=== PATIENT | female | born 1995 | race Caucasian/White ===

== ENCOUNTER 2024-01-04 22:12 | Emergency (ER) | payer OTHER, SELFPAY ==
[2024-01-04 22:13] VITALS: BP 131/87; PULSE 114; RESP 18; TEMP 37.2; O2SAT 99; BMI 38.2
[2024-01-04 23:26] VITALS: BP 124/90; PULSE 61; RESP 18; TEMP 36.8; O2SAT 97
[2024-01-04 23:59] VITALS: BP 139/88; PULSE 104; RESP 16; O2SAT 96
[2024-01-05 00:26] LABS: Absolute Lymphocyte Count 2.03 X10^3/uL (0.83-4.51); Absolute Neutrophil Count 11.2 X10^3/uL (2.0-7.7); Basophil# 0.04 X10^3/uL; Basophil% 0.3 % (0-1); Eosinophil# 0.25 X10^3/uL; Eosinophils% 1.8 % (0-5); Hematocrit 37.1 % (37-47); Hemoglobin 11.1 g/dL (12.0-15.0); Lymphocyte # 2.03 X10^3/ul (0.83-4.51); Lymphocyte % 14.5 % (19-41); Mean Corp Hgb Conc 29.9 g/dL (32-36); Mean Corpuscular Hgb 24.3 pg (27.0-32.0); Mean Corpuscular Volume 81.2 fL (81-99); Mean Platelet Vol. 10.4 fl (6.2-12.0); Monocyte# 0.44 X10^3/uL; Monocyte% 3.1 % (0-10); NRBC Flagged by Analyzer 0 % (0-5); Neutrophil # 11.19 X10^3/uL (2.7-7.7); Neutrophil % 79.9 % (47-70); Platelet Count 380 K/mm3 (150-450); RBC Distribution Width CV 15.3 % (11.6-14.6); RBC Distribution Width SD 45.4 fl (35.1-43.9); Red Blood Count 4.57 M/mm3 (4.2-5.4)
[2024-01-05 00:30] LABS: Internal QC Validated? YES +Cl - CLEAR BKGD; Pregnancy, Serum, hCG Quali. NEGATIVE Negative
[2024-01-05 00:33] LABS: AST(SGOT) 18 U/L (15-37); Alanine Aminotransfer ALT/SGPT 34 U/L (13-56); Albumin, Serum 3.4 g/dL (3.2-5.0); Alkaline Phosphatase 145 U/L (45-117); Anion Gap 5 (5-15); BUN 11 mg/dL (7-18); BUN/Creat Ratio 16.4 RATIO (10-20); Bilirubin, Direct < 0.05 mg/dL (0.00-0.30); Calcium,Total 9.1 mg/dL (8.5-10.1); Chloride 108 mmol/L (98-107); Creatinine, Serum 0.67 mg/dL (0.55-1.02); EST Glomerular Filtration Rate 111 mL/min (>60); Est Glom Filt Rate - Afr Amer 134 mL/min (>60); Estimated Creatinine Clearance 134.16 ml/min; Globulin 4.3 g/dL (2.2-4.2); Glucose 122 mg/dL (74-106); Lipase 26 U/L (13-75); Potassium 3.8 mmol/L (3.5-5.1); Protein, Total 7.7 g/dL (6.4-8.2); Sodium Level 141 mmol/L (136-145)
--- NOTE | 2024-01-05 00:57 | CT_ITS ---
EXAM: CT Abdomen And Pelvis W/O Contrast Injection HISTORY: abd pain back pain and right sided pain TECHNIQUE: Routine protocol CT abdomen and pelvis. IV Contrast: None.. Oral contrast: With. RADIATION DOSAGE (If Supplied By Facility): CTDIvol = ( 20.92 ) mGy, DLP = ( 982.62 ) mGycm Individualized dose optimization techniques were used for this CT. COMPARISON: None. LIMITATIONS: None. FINDINGS: LOWER CHEST: Included lung bases are clear. LIVER: Grossly unremarkable. GALLBLADDER AND BILIARY TREE: Questionable tiny gallstone in the gallbladder neck region. Gallbladder wall is indistinct possibly motion related. PANCREAS: Grossly unremarkable. SPLEEN: Grossly unremarkable. ADRENAL GLANDS: Grossly unremarkable. KIDNEYS AND URETERS: Left kidney atrophic. No calculi demonstrated. No hydronephrosis. PERITONEUM: MINILAB OPERATOR shunt tip in the left midabdomen. No free air. No free fluid. BOWEL: No bowel obstruction. APPENDIX: Not identified. VESSELS: Abdominal aorta is normal caliber. REPRODUCTIVE ORGANS: Soft tissue fullness in the left adnexa approximately 4 x 3.5 cm abuts the uterus, possibly exophytic fibroid versus related to the left ovary. URINARY BLADDER: Mildly distended, lobulated contour. ABDOMINAL WALL: Unremarkable. BONES: No acute abnormalities. Scoliosis and lumbosacral dysraphism with cord abnormality which is not well assessed. CT/Abdomen/Pel W ORAL Cont Only IMPRESSION: Questionable cholelithiasis and indistinct gallbladder wall. Ultrasound correlation may be helpful to evaluate for acute cholecystitis if clinically indicated. Soft tissue fullness left adnexa exophytic fibroid versus prominent left ovary. This could be further evaluated with pelvic ultrasound as needed. Atrophic left kidney. Electronically Signed: Keyona Corcoran MD at 3:23 EST ,
[2024-01-05] MEDS: Oxycodone/Apap 5/325 Tablet PO ×2 (01:03→04:02)
[2024-01-05 01:20] LABS: Color, Urine Yellow (Yellow); Glucose, Dipstick Normal (Normal); Ketone-Dipstick 5 mg/dl (Negative); Leukocyte Esterase-Dipstick 500 /ul (Negative); Mucous, Urine 0 SEEN /hpf (<or=2+); Nitrite-Dipstick Positive (Negative); Occult Blood-Urine 10 /ul (Negative); Protein-Dipstick 15 mg/dl (Negative); Specific Gravity, Urine 1.015 (1.002-1.030); Urine Bilirubin Dipstick Negative (Negative); Urine Clarity Sl. Cloudy (Clear); Urine Urobilinogen 1 mg/dl (Normal)
[2024-01-05 01:27] LABS: Bacteria 4+ /hpf (None Seen); Fine Granular Cast- Urine 0 SEEN /lpf (0-5); Hyaline Cast 0 SEEN /lpf (0-5); Red Blood Cells-Urine 10-25 SEEN /hpf (0-5); Squamous Epithelial Cells - UA 5-10 SEEN /hpf (5-10); White Blood Cells >100 SEEN /hpf (0-5)
[2024-01-05] MEDS: Ceftriaxone 1 GM Vial IM (02:59)
--- NOTE | 2024-01-05 03:41 | EX.ED.DYSGE1 ---
HPI History of Present Illness Chief Complaint: Back Informant: patient and parent Narrative Narrative: Patient is a 28-year-old female with past medical history of anxiety/depression as well as spina bifida. She states she has been having intermittent right-sided back pain over the last week or so with no known injury. She states that this evening it came on suddenly and despite taking [id number] medications has not improved. 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 She states that with her spina bifida she is paralyzed from the waist down and has to self catheterize 3 times a day. She states has been no associated fevers or chills with this based on the persistent pain comes in for evaluation [facility] Medical History (Updated 01/05/24 @ 05:[address] Avinash Jimenez, ) Anxiety Depressed Spina bifida Home Medications alprazolam 0.5 mg tablet 0.5 mg PO TID 01/04/24 [History Last Taken Unknown] bupropion HCl 300 mg 24 hr tablet, extended release 300 mg PO DAILY 01/04/24 [History Last Taken Unknown] venlafaxine 75 mg capsule,extended release 24 hr 75 mg PO BID 01/04/24 [History Last Taken Unknown] oxycodone-acetaminophen 5 mg-325 mg tablet (Percocet) 1 tab PO Q6H PRN pain 3 days #12 tabs 01/05/24 [Rx Last Taken Unknown] sulfamethoxazole 800 mg-trimethoprim 160 mg tablet (Bactrim DS) 1 tab PO BID 7 days #14 tabs 01/05/24 [Rx Last Taken Unknown] Allergy/AdvReac Type Severity Reaction Status Date / Time No Known Allergies Allergy Verified 01/05/24 01:20 Social History Smoking Status: Never smoker [facility] ED Constitutional Constitutional ED: Denies chills or fever(s) Eyes Eyes: Denies change in vision ENT ENT ED: Denies sore throat Cardiovascular Cardiovascular: Denies chest pain Respiratory/Chest Respiratory/Chest: Denies cough or dyspnea Gastrointestinal Gastrointestinal: Reports abdominal pain; Denies diarrhea, nausea or vomiting Musculoskeletal Musculoskeletal: Reports back pain Integumentary Denies rash Neurologic Neurologic: Denies headache(s) Hematologic/Lymphatic Hematologic/Lymphatic: Denies easy bleeding or easy bruising EXAM Physical Exam Const Vital Signs: 01/04/24 22:13 01/04/24 23:59 01/04/24 23:26 Temperature 98.9 F 98.3 F Temperature Source Oral Pulse Rate 114 H 104 H 61 Respiratory Rate 18 16 18 Blood Pressure 131/87 H 139/88 H 124/90 H Blood Pressure Mean 101 105 101 Pulse Ox 99 96 97 Oxygen Delivery Method Room Air Room Air Positive well nourished, well developed and obese General Appearance ED: well developed; Negative for pallor Nutritional Appearance: obese HEENT HEENT Narrative: Normocephalic atraumatic Eyes PERRL and EOMs intact bilaterally General Eye ED: Negative for scleral icterus Neck supple Resp normal respiratory effort and clear to auscultation bilaterally Cardio regular rate and regular rhythm Rate: other Other Details: Radial and carotid pulses are equal and symmetric GI non-distended GI Narrative: Abdomen is soft and nondistended with normal active bowel sounds. Patient has mild pain with palpation in the right upper quadrant without voluntary guarding or rigidity. Negative Mcnamara sign noted. Auscultation: normoactive bowel sounds Palpation: soft Back/Spine Back/Spine Narrative: Positive right CVA pain present Extremity Extremity Narrative: Patient has chronic changes to her bilateral lower extremities consistent with spina bifida Neuro oriented x3 and CN's II-XII intact bilaterally Sensorium / Orientation: alert Psych mental status grossly normal Skin no rashes or lesions noted Skin Narrative: No overlying soft tissue changes to suggest trauma or infection General Skin Exam: Negative for jaundice or pallor MDM MDM MDM Narrative Medical decision making narrative: Patient arrived to the ER mildly tachycardic but otherwise with stable vitals. General diagnosis is for kidney stone versus UTI versus pyelonephritis versus biliary colic versus acute cholecystitis versus pancreatitis. Secondary to his basic labs were obtained. Labs show elevation to her white count but otherwise no signs of acute kidney injury and stable liver enzymes. A CT with oral contrast was obtained as the IV could not be established. This revealed a potential gallstone as well as left-sided fibroid versus ovarian cyst. Patient does not have pain in the left lower quadrant and therefore I feel this is incidental and do not need to emergently evaluate the mass. As the patient's liver enzymes are normal I do not feel need for emergent ultrasound so should be given an outpatient order form to have this done at her convenience. The patient is urine sample does show changes consistent with infection which correlates with the fact that she Perform self-catheterization. I do feel that her right-sided CVA/back pain is most likely pyelonephritis but as she is not showing findings concerning for acute kidney injury or sepsis there is no need for admission and she be started on oral antibiotics and otherwise is safe for discharge. History & Record Review Discussion w/independent historian: Patient and Family Lab Data Labs: Laboratory Results - last 24 hr 01/05/24 01/05/24 00:00 01:10 WBC 14.0 H RBC 4.57 Hgb 11.1 L Hct 37.1 MCV 81.2 MCH 24.3 L MCHC 29.9 L RDW Std Deviation 45.4 H RDW Coeff of Vijay 15.3 H Plt Count 380 MPV 10.4 Immature Gran % (Auto) 0.400 Neut % (Auto) 79.9 H Lymph % (Auto) 14.5 L [place] % (Auto) 3.1 Eos % (Auto) 1.8 Baso % (Auto) 0.3 Absolute Neuts (auto) 11.2 H Absolute Lymphs (auto) 2.03 Nucleated RBC % 0 Sodium 141 Potassium 3.8 Chloride 108 H Carbon Dioxide 28.0 Anion Gap 5 BUN 11 Creatinine 0.67 Estim Creat Clear Calc 134.16 Est GFR (MDRD) Af Amer 134 Est GFR (MDRD) Non-Af 111 BUN/Creatinine Ratio 16.4 Glucose 122 H Calcium 9.1 Total Bilirubin 0.20 Direct Bilirubin < 0.05 AST 18 ALT 34 Alkaline Phosphatase 145 H Total Protein 7.7 Albumin 3.4 Globulin 4.3 H Lipase 26 Serum , Qual NEGATIVE Urine Color Yellow Urine Clarity Sl. Cloudy Urine pH 7.0 Ur Specific [place] 1.015 Urine Protein 15 H Urine Glucose (UA) Normal Urine Ketones 5 H Urine Occult Blood 10 H Urine Nitrite Positive H Urine Bilirubin Negative Urine Urobilinogen 1 H Ur Leukocyte Esterase 500 H Urine RBC 10-25 SEEN Urine WBC >100 SEEN Ur Squamous Epith Cells 5-10 SEEN Urine Bacteria 4+ Hyaline Casts 0 SEEN Fine Granular Casts 0 SEEN Urine Mucus 0 SEEN Radiography Diagnostic Testing: Clinical Impression(s) from Imaging Studies Abdomen CT 01/05/24 00:57 IMPRESSION: Questionable cholelithiasis and indistinct gallbladder wall. Ultrasound correlation may be helpful to evaluate for acute cholecystitis if clinically indicated. Soft tissue fullness left adnexa exophytic fibroid versus prominent left ovary. This could be further evaluated with pelvic ultrasound as needed. Atrophic left kidney. Electronically Signed: Keyona Corcoran MD at 3:23 EST , Discharge Plan Triage Chief Complaint: Back ED Provider: Avinash Jimenez Dx/Rx/DC Orders Clinical Impression: Pyelonephritis, Biliary colic, Spina bifida Instructions: Kidney Infec Dc, ED Gallstones with Biliary Colic Prescriptions: New oxycodone-acetaminophen [Percocet] 5-325 mg tablet 1 tab PO Q6H PRN (Reason: pain) 3 Days Qty: 12 0RF sulfamethoxazole-trimethoprim [Bactrim DS] 800-160 mg tablet 1 tab PO BID 7 Days Qty: 14 0RF No Action alprazolam 0.5 mg tablet 0.5 mg PO TID Patient Comments: pt reports taking 2 in the morning and 1 at bedtime bupropion HCl 300 mg tablet extended release 24 hr 300 mg PO DAILY Patient Comments: TAKE ONE TABLET BY MOUTH ONCE DAILY venlafaxine 75 mg capsule,extended release 24hr 75 mg PO BID Patient Comments: TAKE ONE CAPSULE BY MOUTH TWICE DAILY Other Ambulatory Orders: Gallbladder (Routine) Facility: [facility] - Location: [facility] Ordered By: Dr. Avinash Jimenez Primary Care Provider: [facility] ,Out of Referrals: Sunil Girard,Out of [Primary Care Provider] - Activity Restrictions/Additional Instructions: Please obtain outpatient gallbladder ultrasound to further assess the cause of your pain and return to the ER should you have any further concerns or worsening of symptoms Disposition Disposition: Home, Self Care Discharge Date/Time: 01/05/24 04:04
== END 2024-01-05 04:04 | disposition home or self-care (01) ==
PROVIDERS: Emergency Provider Emergency Medicine; Visit Provider Emergency Medicine
DX: N12 Tubulo-interstitial nephritis, not specified as acute or chronic (principal); Q05.9 Spina bifida, unspecified; F41.9 Anxiety disorder, unspecified; K80.70 Calculus of gallbladder and bile duct without cholecystitis without obstruction; F32.A Depression, unspecified; Z79.899 Other long term (current) drug therapy
CPT/HCPCS: 74176; 80048; 80076; 81001; 83690; 84703; 85025; 87077; 87086; 87088; 87186; 99283; J7030; A4216; J2405

== ENCOUNTER → 2024-01-06 | Outpatient (CLI) | payer OTHER, SELFPAY ==
--- NOTE | 2024-01-06 10:31 | US_ITS ---
STUDY: ABDOMINAL ULTRASOUND - RIGHT UPPER QUADRANT REASON FOR VISIT: Female, 28 years old . 4 month history of right upper quadrant pain. TECHNIQUE: Ultrasound evaluation of the right upper quadrant was performed with real-time and static de luna-scale imaging. TECHNICAL QUALITY: Adequate. COMPARISON: Comparison is made with prior CT scan dated January 05, 2024. FINDINGS: Liver: The liver measures 14.3 cm. There is increased echogenicity consistent with fatty infiltration. The bile ducts are within normal limits. There is hepatic color flow. The direction of portal flow is hepatopetal. There is no demonstrated mass lesion. Gallbladder: Normal distended gallbladder. The gallbladder wall measures 2.7 mm. There is a negative sonographic Mcnamara''s sign. There is no pericholecystic fluid. There are no gallstones. Common Bile Duct (C.B.D.): The common bile duct measures 4.5 mm. Pancreas: Normal size of the head, body and tail of the pancreas. There is increased echogenicity of the pancreas. There is no demonstrated pancreatic mass or cyst. Right Kidney: Normal size of the right kidney. The right kidney measures 10.3 cm x 5.7 cm x 5.6 cm. Normal renal cortex. The right cortex measures 1.9 cm. There is no demonstrated renal mass or cyst. There is no right hydronephrosis. US/Gallbladder IMPRESSION: Fatty infiltration of the liver. Electronically Signed: Anil Cr MD at 13:10 EST ,
--- OUTSIDE RECORDS SUMMARY | 2024-01-06 10:50 | XMS RPT_ITS | CCD ---
Author Name Unknown Address [address] [place] [address] Organization [facility] Care Team Providers Care Photogrammetric Technician Name Role Phone MARYAN WHITE Attending Unavailable MARYAN WHITE Primary Care Unavailable MARYAN WHITE Admitting Unavailable DOC GARCIA MD Consulting Unavailable PROVIDER, UNKNOWN Consulting Unavailable SKIP JACKSON, OFELIA Attending [place] ble PHYSICIAN, NONE Primary Care Unavailable Results Test Name Value Interpretation Reference Range Facil ity Encounters Encounter Date Encounter Type Care Provider Facility Start: 01-04-2024 ambulatory OFELIA JACKSON Facility:B Start: 12-11-2020 End: 12-11-2020 Patient encounter procedure MARYAN WHITE [facility] Payers Date Payer Category Payer Self-pay 1995 Unknown [id number] Summary Purpose Family History No Family History Records FoundNo Family History Records Found Advance Directives No Advanced Directives Records FoundNo Advanced Directives Records Found Additional Source Comments INFORMATION SOURCE (unrecogn ized section and content) DATE CREATED AUTHOR AUTHOR'S ORGANIZ ATION 01/05/2024 [facility] ([place]) FOR RECORDS PERTAINING TO PATIENTS WHO ARE OR HAVE BEEN ENROLLED IN A CHEMICAL DEPENDENCY/SUBSTANCEABUSE PROGRAM, SOME INFORMATION MAY BE OMITTED. This clinical summary was aggregated from multiple sources. Caution should be exercised in using it in the provision of clinical care. This summary normalizes information from multiple sources, and as a consequence, information in this document may materially change the coding, format and clinical context of patient data. In addition, data may be omitted in some cases. CLINICAL DECISIONS SHOULD BE BASED ON THE PRIMARY CLINICAL RECORDS. [facility] [employer] [facility]. provides no warranty or guarantee of the accuracy or completeness of information in this document.
== END | disposition home or self-care (01) ==
PROVIDERS: Referring Provider Emergency Medicine; Visit Provider Emergency Medicine
DX: R10.11 Right upper quadrant pain (principal)
CPT/HCPCS: 76705

== ENCOUNTER → 2025-03-19 | Outpatient (CLI) | payer OTHER, SELFPAY ==
--- NOTE | 2025-03-19 18:14 | US_ITS ---
PROCEDURE: KIDNEY AND BLADDER 03/19/2025 REASON FOR EXAM: NEUROGENIC BLADDER TECHNIQUE: Bilateral renal ultrasound. FINDINGS: Kidneys: Normal renal sizes, parenchymal thicknesses, and echotextures. Left renal agenesis. [place]: No Cysts or Masses: 1 cm cyst mid section of the right kidney. Other: RIGHT Kidney Size: 10.7 x 5.0 x 5.6 Volume: mL Parenchymal Thickness: (>14mm is normal) Cortical Thickness (if discernible): 1.9 (>6mm is normal) US/Kidney and Bladder IMPRESSION: NORMAL RENAL ULTRASOUND with left renal agenesis. Reading Location: [id number]
== END | disposition home or self-care (01) ==
LOC: US 17:59
DX: G82.20 Paraplegia, unspecified (principal); N31.9 Neuromuscular dysfunction of bladder, unspecified; R33.9 Retention of urine, unspecified; Q60.0 Renal agenesis, unilateral
CPT/HCPCS: 76770